=== PATIENT | female | born 1940 | race Caucasian/White ===

== ENCOUNTER 2016-12-29 08:38 | Emergency (ER) | payer SELFPAY ==
[~2016-12-29] VITALS: Ht 154.9 cm; Wt 57.8 kg
[2016-12-29 08:42] VITALS: Ht 154.9 cm; Wt 57.8 kg
== END 2016-12-29 14:21 | disposition left against medical advice (07) ==
LOC: E/R 08:38
DX: Z53.21 Procedure and treatment not carried out due to patient leaving prior to being seen by health care provider (principal)